=== PATIENT | male | born 1995 | race Caucasian/White ===

== ENCOUNTER 2024-07-03 07:03 | Emergency (ER) | payer SELFPAY ==
[2024-07-03 07:15] VITALS: BP 129/65; PULSE 85
[2024-07-03] MEDS: Dexamethasone 4 MG/ML SDV IM ONE (08:00)
[2024-07-03] MEDS: Albuterol/Ipratropium 3.0-0.5 MG/3 ML Neb Soln NEB ONE (08:00)
== END 2024-07-03 08:31 | disposition home or self-care (01) ==
LOC: DL.ED 07:03
DX: J06.9 Acute upper respiratory infection, unspecified (principal); F17.290 Nicotine dependence, other tobacco product, uncomplicated; Z88.5 Allergy status to narcotic agent; Z79.899 Other long term (current) drug therapy
CPT/HCPCS: 71046; 87428; 94640; 96372; 99284; J1100; J7620-GY